=== PATIENT | male | born 1960 | race Caucasian/White ===

== ENCOUNTER 2016-07-18 17:39 | Observation (INO) | payer OTHER ==
[2016-07-18 17:46] VITALS: BMI 30.2
--- NOTE | 2016-07-18 18:25 | PDOC ---
History of Present Illness <Patti Alvarado - Last Filed: 07/18/16 21:35> - General History Source: Patient Exam Limitations: No Limitations - History of Present Illness Presenting Symptoms: Chest Pain Timing/Duration: reports: intermittent Severity/Quality: reports: pressure Location: reports: other (left sided ) Chest Pain Radiation: reports: arms Activities at Onset: reports: none Prior Chest Pain/Cardiac Workup: reports: No prior cardiac workup Nitro Today/Relief: Yes: no nitro taken today Aspirin Received prior to arrival (Core Measure): Yes: 81 mg x 2, provided by ED Associated Symptoms: Yes: Shortness of Breath, Weakness <Marnie Langford - Last Filed: 07/19/16 01:25> - General Chief Complaint: Chest Pain Stated Complaint: CHEST PAIN/NUMBNESS TO FINGERS Time Seen by Provider: 07/18/16 18:14 - History of Present Illness Initial Comments: 07/18/16 19:25 Patient is a 55 year old male with no known significant medical hx, the patient does not have a PCP and hasnt seen a doctor in years, who is presenting to the ED with intermittent chest pain for three days. Patient had an onset of chest pain two days ago that resolved the following day and returned yesterday. The patients pain radiates down his left arm to his left shoulder with tingling at his fingertips. He rates it 5/10 in severity. The patient reports some accompanied shortness of breath. The patient denies fever, chills, cough, diaphoresis, recent heavy lifting or heavy exertion; he denies past cardiac workup. Surgical Hx: cholecystectomy Social Hx: Occasional alcohol use, denies tobacco use. Family Hx: Grandfather - [place] Denies allergies. (Patti Alvarado) Past History <Patti Alvarado - Last Filed: 07/18/16 21:35> - Past Medical History Anemia: No Asthma: No Cancer: No Cardiac Disorders: No CVA: No COPD: No CHF: No Dementia: No Diabetes: No GI Disorders: No Disorders: No HTN: No Hypercholesterolemia: No Liver Disease: No Seizures: No Thyroid Disease: No - Surgical History Abdominal Surgery: No Appendectomy: No Cardiac Surgery: No Cholecystectomy: Yes Lung Surgery: No Neurologic Surgery: No Orthopedic Surgery: No - Psycho/Social/Smoking Cessation Hx Anxiety: No Suicidal Ideation: No Smoking Status: No Smoking History: Never smoked Number of Cigarettes Smoked Daily: 0 Information on smoking cessation initiated: No Hx Alcohol Use: No Drug/Substance Use Hx: No Hx Substance Use Treatment: No <Marnie Langford - Last Filed: 07/19/16 01:25> - Past Medical History Allergies/Adverse Reactions: Allergies Allergy/AdvReac Type Severity Reaction Status Date / Time No Known Allergies Allergy Verified 07/18/16 17:46 Home Medications: Ambulatory Orders NK [No Known Home Medication] 07/18/16 Cardiac Specific PMH - Complaint Specific PMHX Pacemaker: No <Marnie Langford - Last Filed: 07/19/16 01:25> Review of Systems <Patti Alvarado - Last Filed: 07/18/16 21:35> <Marnie Langford - Last Filed: 07/19/16 01:25> - Review of Systems Comments:: 07/18/16 19:25 CONSTITUTIONAL: Absent: fever, chills, diaphoresis, generalized weakness, malaise, loss of appetite HEENT: Absent: rhinorrhea, nasal congestion, throat pain, throat swelling, difficulty swallowing, mouth swelling, ear pain, eye pain, visual changes CARDIOVASCULAR: Present: chest pain Absent: syncope, palpitations, irregular heart rate, lightheadedness, peripheral edema RESPIRATORY: Present: shortness of breath Absent: cough, dyspnea with exertion, orthopnea, wheezing, stridor, hemoptysis GASTROINTESTINAL: Absent: abdominal pain, abdominal distension, nausea, vomiting, diarrhea, constipation, melena, hematochezia GENITOURINARY: Absent: dysuria, frequency, urgency, hesitancy, hematuria, flank pain, genital pain MUSCULOSKELETAL: Absent: myalgia, arthralgia, joint swelling SKIN: Absent: rash, itching, pallor HEMATOLOGIC/IMMUNOLOGIC: Absent: easy bleeding, easy bruising, lymphadenopathy, frequent infections ENDOCRINE: Absent: unexplained weight gain, unexplained weight loss, heat intolerance, cold intolerance NEUROLOGIC: Absent: headache, focal weakness or paresthesia, dizziness, unsteady gait, seizure, mental status changes, bladder or bowel incontinence. PSYCHIATRIC: Absent: anxiety, depression, suicidal or homicidal ideation, hallucinations (Patti Alvarado) *Physical Exam <Patti Alvarado - Last Filed: 07/18/16 21:35> <Marnie Langford - Last Filed: 07/19/16 01:25> - Vital Signs Last Vital Signs Temp Pulse Resp BP Pulse Ox 98.6 F 75 16 151/99 99 07/18/16 17:42 07/18/16 18:24 07/18/16 18:24 07/18/16 18:24 07/18/16 18:24 - Physical Exam Comments: 07/18/16 19:27 GENERAL: Well developed, well nourished. Awake and alert. No acute distress. HEENT: Normocephalic, atraumatic. PERRLA, EOMI. No conjunctival pallor. Sclera are non- icteric. Moist mucous membranes. Oropharynx is clear. NECK: Supple. Full ROM. No JVD. Carotid pulses 2+ and symmetric, without bruits. No thyromegaly. No lymphadenopathy. CARDIOVASCULAR: Regular rate and rhythm. No murmurs, rubs, or gallops. Distal pulses are 2+ and symmetric. PULMONARY: No evidence of respiratory distress. Lungs clear to auscultation bilaterally. No wheezing, rales or rhonchi. ABDOMINAL: Soft. Non-tender. Non-distended. No rebound or guarding. No organomegaly. Normoactive bowel sounds. MUSCULOSKELETAL: Normal range of motion at all joints. No bony deformities or tenderness. No CVA tenderness. EXTREMITIES: No cyanosis. No clubbing. No edema. No calf tenderness. SKIN: Warm and dry. Normal capillary refill. No rashes. No jaundice. NEUROLOGICAL: Alert, awake, appropriate. Cranial nerves 2-12 intact. Normal speech. Gait is normal without ataxia. PSYCHIATRIC: Cooperative. Good eye contact. Appropriate mood and affect. (Patti Alvarado) Heart Score/ECG Review <Patti Alvarado - Last Filed: 07/18/16 21:35> <Marnie Langford - Last Filed: 07/19/16 01:25> #1 07/18/16 21:35 Normal sinus rhythm at 76 bpm Possible left atrial enlargement Borderline ECG (Patti Alvarado) ED Treatment Course - LABORATORY CBC & Chemistry Diagram: 07/18/16 18:08 07/18/16 18:08 <Patti Alvarado - Last Filed: 07/18/16 21:35> - LABORATORY CBC & Chemistry Diagram: 07/18/16 18:08 07/18/16 18:08 <Marnie Langford - Last Filed: 07/19/16 01:25> - ADDITIONAL ORDERS Additional order review: Laboratory Results 07/18/16 07/18/16 18:08 18:08 Sodium 139 Potassium 4.0 Chloride 105 Carbon Dioxide 29 Anion Gap 5 L BUN 13 Creatinine 0.8 Creat Clearance w eGFR > 60 Random Glucose 108 H Calcium 9.1 Total Bilirubin 0.4 D AST 32 ALT 64 Alkaline Phosphatase 92 Creatine Kinase 197 D Creatine Kinase Index 0.6 CK-MB (CK-2) 1.144 CK-MB (CK-2) Rel Index Cancelled Troponin I < 0.02 Total Protein 7.5 Albumin 4.1 D 07/18/16 18:08 RBC 5.07 D MCV 90.8 MCHC 33.2 RDW 13.1 MPV 9.2 D Neutrophils % 60.3 D Lymphocytes % 27.4 D Monocytes % 9.3 Eosinophils % 2.3 D Basophils % 0.7 - RADIOLOGY Radiology Studies Ordered: Category Date Time Status CHEST X-RAY PORTABLE* [RAD] Stat Radiology 07/18/16 18:12 Completed - Medications Given in the ED: ED Medications Discontinued Medications Generic Name Dose Route Start Last Admin Trade Name Sukumar PRN Reason Stop Dose Admin Aspirin 162 mg 07/18/16 19:18 07/18/16 19:34 Asa - PO 07/18/16 19:19 162 mg ONCE ONE Administration Medical Decision Making <Patti Alvarado - Last Filed: 07/18/16 21:35> <Marnie Langford - Last Filed: 07/19/16 01:25> - Medical Decision Making 07/19/16 01:22 55-year-old male has a c chest pain and ease to He said it was intermittent in and is 5 out of 10 He denies any significant past chiquis history, but admits to or health care practitioner for many years Social history , works as escrow manager,does not use tobacco ,occasionally drinks beer Past surgical history - denies Past medical history denies EKG was normal sinus rhythm with no signs of a First set of cardiac enxymes were negative cxr napd case discussed w Dr Thorpe who admitted this pt to telemetry OBS for repeat enzymes and repeat ekgs/cardiology consultation (Marnie Langford) *DC/Admit/Observation/Transfer <Patti Alvarado - Last Filed: 07/18/16 21:35> - Discharge Dispostion Admit: Yes <Marnie Langford - Last Filed: 07/19/16 01:25> Diagnosis at time of Disposition: Chest pain Qualifiers: Chest pain type: precordial chest pain Qualified Code(s): R07.2 - Precordial pain - Discharge Dispostion Decision to Admit order Date/Time: Decision to Admit Order Category Date Time Status Decision to Admit to Hospital Routine Phy Order 07/18/16 23:51 Ordered - Attestations Scribe Attestion: 07/18/16 19:30 Documentation prepared by Patti Alvarado, acting as site medical director for Marnie Langford MD. (Patti Alvarado)
[2016-07-18 18:28] LABS: BASOPHIL 0.7 % (0-2.0); EOSINOPHIL 2.3 % (0-4.5); MCH 30.2 pg (25.7-33.7); MCHC 33.2 g/dl (32.0-35.9); MEAN CELL VOLUME 90.8 fl (80-96); MEAN PLT VOLUME 9.2 fl (7.5-11.1); NEUTROPHILS 60.3 % (42.8-82.8); PLATELET COUNT 194 K/MM3 (134-434); RDW 13.1 % (11.9-15.9); WHITE BLOOD COUNT 8.3 K/mm3 (4.0-10.0)
[2016-07-18] MEDS ORDERED: ASPIRIN 81 MG CHEWABLE TABLETS PO ONE (19:18)
[2016-07-18 19:20] LABS: ALBUMIN 4.1 g/dl (3.4-5.0); ANION GAP 5 (8-16); CALCIUM 9.1 mg/dL (8.5-10.1); CO2 29 mmol/L (21-32); CREATININE 0.8 mg/dL (0.7-1.3); GLUCOSE,RANDOM 108 mg/dL (74-106); SGOT/AST 32 U/L (15-37); SGPT/ALT 64 U/L (12-78)
[2016-07-18 19:23] LABS: ALK PHOS 92 U/L (45-117); BILIRUBIN,TOTAL 0.4 mg/dL (0.2-1.0); TOT PROT 7.5 g/dl (6.4-8.2); TROPONIN I < 0.02 ng/ml (0.00-0.05)
[2016-07-18] MEDS ORDERED: ASPIRIN 81 MG CHEWABLE TABLETS ONE (19:31)
--- NOTE | 2016-07-19 00:23 | HP ---
Admitting History and Physical - Primary Care Physician PCP: Ashwin Thorpe - Admission Chief Complaint: chets pain History of Present Illness: 55 year old male with no known significant medical hx, the patient does not have a PCP and hasnt seen a doctor in years, who is presenting to the ED with intermittent chest pain for three days. Patient had an onset of chest pain two days ago that resolved the following day and returned yesterday. The patients pain radiates down his left arm to his left shoulder with tingling at his fingertips. He rates it 5/10 in severity. The patient reports some accompanied shortness of breath. - Smoking History Smoking history: Never smoked Aproximately how many cigarettes per day: 0 - Alcohol/Substance Use Hx Alcohol Use: No Home Medications - Allergies Allergies/Adverse Reactions: Allergies Allergy/AdvReac Type Severity Reaction Status Date / Time No Known Allergies Allergy Verified 07/18/16 17:46 - Home Medications Home Medications: Ambulatory Orders NK [No Known Home Medication] 07/18/16 Review of Systems - Review of Systems Cardiovascular: reports: Chest Pain Physical Examination Vital Signs: Vital Signs Temperature 98.6 F 07/18/16 17:42 Pulse Rate 75 07/18/16 18:24 Respiratory Rate 16 07/18/16 18:24 Blood Pressure 151/99 07/18/16 18:24 O2 Sat by Pulse Oximetry (%) 99 07/18/16 18:24 Constitutional: Yes: No Distress HENT: Yes: Atraumatic Neck: Yes: Supple Cardiovascular: Yes: Regular Rate and Rhythm Respiratory: Yes: CTA Bilaterally Gastrointestinal: Yes: Normal Bowel Sounds Extremities: Yes: WNL Neurological: Yes: Alert, Oriented Imaging - Results X-ray: Report Reviewed Problem List - Problems (1) Chest pain Assessment/Plan: tele observation serial cardiac enzymes echo cardiology consult dvt ppx Code(s): R07.9 - CHEST PAIN, UNSPECIFIED Qualifiers: Chest pain type: precordial chest pain Qualified Code(s): R07.2 - Precordial pain Assessment/Plan Laboratory Tests 07/18/16 07/18/16 07/18/16 18:08 18:08 18:08 WBC 8.3 RBC 5.07 D Hgb 15.3 D Hct 46.1 D MCV 90.8 MCHC 33.2 RDW 13.1 Plt Count 194 MPV 9.2 D Neutrophils % 60.3 D Lymphocytes % 27.4 D Monocytes % 9.3 Eosinophils % 2.3 D Basophils % 0.7 Sodium 139 Potassium 4.0 Chloride 105 Carbon Dioxide 29 Anion Gap 5 L BUN 13 Creatinine 0.8 Creat Clearance w eGFR > 60 Random Glucose 108 H Calcium 9.1 Total Bilirubin 0.4 D AST 32 ALT 64 Alkaline Phosphatase 92 Creatine Kinase 197 D Creatine Kinase Index 0.6 CK-MB (CK-2) 1.144 CK-MB (CK-2) Rel Index Cancelled Troponin I < 0.02 Total Protein 7.5 Albumin 4.1 D
[2016-07-19 01:35] LABS: TROPONIN I < 0.02 ng/ml (0.00-0.05)
[2016-07-19 08:58] LABS: TROPONIN I < 0.02 ng/ml (0.00-0.05)
[2016-07-19] MEDS ORDERED: INFLUENZA VACCINE 45 MCG/0.5 ML (MDV 16-17) IM ONE (10:00)
--- NOTE | 2016-07-19 10:23 | PN ---
Progress Note (short form) - Note Progress Note: Chief Complaint: Events noted notes reviewed, chest pain syndrome History of Present Illness: Seen and examined on telemetry. Full consult dictated Medications: None Review of Systems - Review of Systems Constitutional: No symptoms reported Respiratory: denies: Cough or Sputum Production Cardiovascular: As noted above Gastrointestinal: denies Nausea, Vomiting, Diarrhea, Constipation or Abdominal Pain Genitourinary: No symptoms reported Musculoskeletal: No symptoms reported Endocrine: No symptoms reported Vital Signs: Last Vital Signs Temp Pulse Resp BP Pulse Ox 98.4 F 64 14 140/90 98 07/19/16 08:00 07/19/16 08:00 07/19/16 08:00 07/19/16 08:00 07/19/16 02:00 Constitutional: No Distress Neck: Supple Negative JVD No Bruit Respiratory: Clear to A&P Bilaterally Cardiovascular: S1 S2 Regular Rate and Rhythm NO Murmurs Clicks or Gallops Gastrointestinal: Soft Benign Normal Bowel Sounds Ext: Negative Edema Labs: Troponin, BNP 07/18/16 07/19/16 07/19/16 18:08 01:00 07:45 Troponin I < 0.02 < 0.02 < 0.02 CBC, BMP 07/18/16 18:08 07/18/16 18:08 Assessment/Plan ASSESSMENT: 1. Chest pain syndrome clinical presentation is atypical for CAD angina pectoris , but to be excluded 2. HTN PLAN: 1. Add Toprol XL 2. Add ASA 3. Obtain fasting lipid profile and initiate therapy accordingly 4. Stress Echocardiography for evaluation of the above noted presentation Zeinab Jack M.D.
[2016-07-19] MEDS ORDERED: METOPROLOL SUCCINATE 25 MG TAB.SR.24H (FP) PO SCH (10:45)
[2016-07-19] MEDS ORDERED: ASPIRIN COATED 81 MG TABLET.EC PO SCH (10:45)
--- NOTE | 2016-07-19 12:14 | CONS ---
DATE OF CONSULTATION: 07/19/2016 REQUESTING PHYSICIAN: Ashwin Thorpe MD CHIEF COMPLAINT: Chest pain, cardiovascular evaluation. HISTORY OF PRESENT ILLNESS: This is a 55-year-old male of descent with no significant past medical history who denies hypertension, cardiovascular disease, diabetes mellitus, hypercholesterolemia, tobacco abuse, or family history of premature coronary artery disease, who presented to [facility] with 1 week of intermittent episodes of left-sided chest discomfort. Chest discomfort was described as heaviness without any radiation until yesterday when patient started complaining of left upper extremity paresthesia. Symptoms are noted at rest and not exacerbated with physical exertion. Patient denied any associated diaphoresis. Patient denies any dyspnea, orthopnea, paroxysmal nocturnal dyspnea, or peripheral edema. Patient denies any palpitations, dizziness, lightheadedness, or syncope. Patient currently is chest pain free. PAST MEDICAL HISTORY: None. PAST SURGICAL HISTORY: Cholecystectomy. SOCIAL HISTORY: Nonsmoker. FAMILY HISTORY: No family history of premature coronary artery disease. ALLERGIES: None. MEDICAL THERAPY AT HOME: None. REVIEW OF SYSTEMS: Head and neck: Denies headache, photophobia, blurring of vision. Respiratory: No cough or sputum production. Cardiovascular: As noted above. Gastrointestinal: Denies nausea, vomiting, diarrhea, or abdominal discomfort. Genitourinary: No symptoms reported. Musculoskeletal: No symptoms reported. PHYSICAL EXAMINATION: Vital signs: Blood pressure is 140/90 mmHg, pulse rate is 64 beats per minute. Head and neck: Pupils are equally reactive to light and accommodation. Extraocular muscles are intact. Anicteric sclerae. Negative JVD. No bruit appreciated. Chest: Clear to auscultation and percussion. Cardiovascular: S1, S2 regular. No murmurs, clicks, or gallops. Abdomen: Soft, benign. Normoactive bowel sounds. Extremities: Negative edema. Intact distal pulses. No calf tenderness. STUDIES: Electrocardiogram reveals sinus rhythm at 76 beats per minute with early transition, non-specific T-wave abnormality. CPK troponin levels were noted. CBC revealed a white cell count of 8.3, hemoglobin 15.3, platelets 194. Basic metabolic profile revealed a sodium 139, potassium 4.0, BUN of 13, creatinine 0.8, glucose 108. ASSESSMENT: 1. Chest pain syndrome. Clinical presentation is atypical for coronary artery disease. Angina pectoris felt to be excluded. 2. Diastolic hypertension. RECOMMENDATION: 1. Addition of Toprol XL therapy. 2. Addition of aspirin. 3. Obtain fasting lipid profile and initiate therapy accordingly. 4. Stress echocardiography for evaluation of the above noted clinical presentation. Thank you for the kind referral. PATTI DRIVER M.D. [id number]
--- NOTE | 2016-07-19 18:07 | EKG ---
Test Reason : Blood Pressure : / mmHG Vent. Rate : 076 BPM Atrial Rate : 076 BPM P-R Int : 160 ms QRS Dur : 090 ms QT Int : 358 ms P-R-T Axes : 023 087 061 degrees QTc Int : 402 ms NORMAL SINUS RHYTHM POSSIBLE LEFT ATRIAL ENLARGEMENT BORDERLINE ECG WHEN COMPARED WITH ECG OF 12-MAR-2013 04:28, NO SIGNIFICANT CHANGE WAS FOUND Confirmed by GRACIELA MONAHAN MD ([id number]) on 07/19/2016 6:06:45 PM Referred By: Confirmed By:GRACIELA MONAHAN MD
--- NOTE | 2016-07-19 18:38 | DS ---
Physical Examination Vital Signs: Vital Signs Temperature 98.2 F 07/19/16 14:15 Pulse Rate 65 07/19/16 14:15 Respiratory Rate 16 07/19/16 14:15 Blood Pressure 134/83 07/19/16 14:15 O2 Sat by Pulse Oximetry (%) 96 07/19/16 15:00 Constitutional: Yes: No Distress HENT: Yes: Atraumatic Neck: Yes: Supple Cardiovascular: Yes: Regular Rate and Rhythm Respiratory: Yes: CTA Bilaterally Gastrointestinal: Yes: Normal Bowel Sounds Extremities: Yes: WNL Neurological: Yes: Alert, Oriented Discharge Summary Reason For Visit: CHEST PAIN Current Active Problems Chest pain (Acute) - Instructions Referrals: Ashwin Thorpe MD [Staff Physician] - Jose Umana MD [Staff Physician] - - Home Medications Comprehensive Discharge Medication List: Ambulatory Orders Aspirin Coated [Ecotrin -] 81 mg PO DAILY #30 tablet.ec 07/19/16 Metoprolol Succinate [Toprol XL -] 25 mg PO DAILY #30 tab.sr.24h 07/19/[address] dsouza. stress echo negative pt can be dc home fu cardiology and pmd as out patient need to check fasting lipid profile
[2016-07-19 18:44] VITALS: BP 114/80; PULSE 100; TEMP 98
== END 2016-07-19 19:27 | disposition home or self-care (01) ==
LOC: JER 17:39 → JERBED 23:59 → J4W 07-19 02:34
PROVIDERS: ADMIT Internal Medicine; ATTEND Internal Medicine
DX: R07.2 Precordial pain (principal); I10 Essential (primary) hypertension
CPT/HCPCS: 36415; 71010-TC; 80053; 82550; 82553; 84484; 85025; 93005; 93010; 93306-TC; 93351; 99285-25; G0378; Q2037

== ENCOUNTER 2017-05-04 18:18 | Emergency (ER) | payer OTHER ==
[2017-05-04 18:43] VITALS: BP 151/100; PULSE 83; TEMP 98.4; BMI 29.8
== END 2017-05-04 20:21 | disposition left against medical advice (07) ==
LOC: JER 18:18
DX: Z53.21 Procedure and treatment not carried out due to patient leaving prior to being seen by health care provider (principal)
CPT/HCPCS: 99281-25